=== PATIENT | female | born 1960 | race Caucasian/White ===

== ENCOUNTER → 2017-07-20 | Outpatient (REF) | payer BC ==
[2017-07-20 14:42] LABS: PERCENT SATURATION 22.3 % (13.2-45.0)
== END ==
LOC: M LAB REF 12:44
PROVIDERS: ATTEND Internal Medicine
DX: D50.9 Iron deficiency anemia, unspecified (principal)

== ENCOUNTER → 2018-01-18 | Outpatient (REF) | payer BC ==
[2018-01-19 19:01] LABS: FERRITIN 50 NG/ML (8-252); IRON (FE) 79 UG/DL (50-170); PERCENT SATURATION 22.5 % (13.2-45.0); TOTAL IRON BINDING CAPACITY 351 UG/DL (250-450)
== END ==
LOC: M LAB REF 17:57
DX: D50.9 Iron deficiency anemia, unspecified (principal)
CPT/HCPCS: 83550

== ENCOUNTER → 2018-06-21 | Outpatient (REF) | payer BC ==
[2018-06-21 13:55] LABS: FERRITIN 57 NG/ML (8-252); IRON (FE) 82 UG/DL (50-170); PERCENT SATURATION 23.8 % (13.2-45.0); TOTAL IRON BINDING CAPACITY 344 UG/DL (250-450)
== END ==
LOC: M LAB REF 11:58
DX: D50.9 Iron deficiency anemia, unspecified (principal)
CPT/HCPCS: 83550

== ENCOUNTER → 2019-11-22 | Outpatient (REF) | payer BC ==
[2019-11-22 12:17] LABS: PERCENT SATURATION 18.2 % (13.2-45.0)
== END ==
LOC: M LAB REF 11:45
PROVIDERS: ATTEND Internal Medicine
DX: R14.0 Abdominal distension (gaseous) (principal); D50.8 Other iron deficiency anemias; R19.4 Change in bowel habit

== ENCOUNTER → 2019-12-20 | Outpatient (REF) | payer BC | LOC: M LAB REF 17:00 | PROVIDERS: ATTEND Internal Medicine | DX: R14.0 Abdominal distension (gaseous) (principal); R19.4 Change in bowel habit; E03.9 Hypothyroidism, unspecified ==

== ENCOUNTER → 2020-05-07 | Outpatient (REF) | payer BC ==
[~2020-05-07] MED LIST: ATOR1TAB19 PO; CLAR10CA3 PO; GNP1000T11 PO; METF500T13 PO
== END ==
LOC: M LAB REF 12:26
PROVIDERS: ATTEND Internal Medicine
DX: K62.89 Other specified diseases of anus and rectum (principal); R19.4 Change in bowel habit

== ENCOUNTER → 2020-05-16 | Outpatient (CLI) | payer BC | LOC: M LABSMTC 11:19 | PROVIDERS: ATTEND Anesthesiology | DX: Z01.812 Encounter for preprocedural laboratory examination (principal); Z20.828 Contact with and (suspected) exposure to other viral communicable diseases | CPT/HCPCS: C9803; U0003 ==

== ENCOUNTER 2020-05-21 11:20 | Day surgery (SDC) | payer BC ==
[~2020-05-21] VITALS: Ht 162.6 cm; Wt 99.3 kg
[~2020-05-21 11:20] MED LIST changes: +LIDOCAINE 2% 100MG/5ML SDV (FOR ANES.) As Ordered ONE; +NS 1,000 ML IV ONE; +propofoL 200 MG/20 ML VIAL As Ordered ONE
--- NOTE | 2020-05-21 13:46 | ROOR ---
Patient Name: Elba Bell Procedure Date: 05/21/2020 1:10 PM Date of : 1960 Age: 59 Room: [facility] Gender: Female Note Status: Finalized Procedure: Colonoscopy Indications: Rectal bleeding Providers: Blaine Bauer MD Referring MD: Estefanía Cary DO Requesting Provider: Medicines: Monitored Anesthesia Care Complications: No immediate complications. Procedure: Pre-Anesthesia Assessment: - Prior to the procedure, a History and Physical was performed, and patient medications and allergies were reviewed. The patient is competent. The risks and benefits of the procedure and the sedation options and risks were discussed with the patient. All questions were answered and informed consent was obtained. Patient identification and proposed procedure were verified by the physician, the nurse and the anesthesiologist in the procedure room. Mental Status Examination: alert and oriented. Airway Examination: normal oropharyngeal airway and neck mobility. Prophylactic Antibiotics: The patient does not require prophylactic antibiotics. Prior Anticoagulants: The patient has taken no previous anticoagulant or antiplatelet agents. ASA Grade Assessment: II - A patient with mild systemic disease. After reviewing the risks and benefits, the patient was deemed in satisfactory condition to undergo the procedure. The anesthesia plan was to use monitored anesthesia care (MAC). Immediately prior to administration of medications, the patient was re-assessed for adequacy to receive sedatives. The heart rate, respiratory rate, oxygen saturations, blood pressure, adequacy of pulmonary ventilation, and response to care were monitored throughout the procedure. The physical status of the patient was re-assessed after the procedure. The Colonoscope was introduced through the anus and advanced to the cecum, identified by appendiceal orifice and ileocecal valve. The colonoscopy was somewhat difficult due to a tortuous colon. The patient tolerated the procedure well. The quality of the bowel preparation was good. Findings: The perianal and digital rectal examinations were normal. The colon (entire examined portion) appeared normal. Impression: - The entire examined colon is normal. - No specimens collected. Recommendation: - Discharge patient to home. - Resume previous diet. - Continue present medications. Blaine Bauer MD Blaine Bauer MD 05/21/2020 1:46:12 PM Electronically signed by Blaine Bauer MD Number of Addenda: 0 Note Initiated On: 05/21/2020 1:10 PM Estimated Blood Loss: Estimated blood loss: none.
[2020-05-21 14:00] VITALS: BP 125/65
== END 2020-05-21 14:11 | disposition home or self-care (01) ==
LOC: M OPP 11:20
PROVIDERS: ATTEND Surgery
DX: K62.5 Hemorrhage of anus and rectum (principal); E78.00 Pure hypercholesterolemia, unspecified; E11.9 Type 2 diabetes mellitus without complications; J45.909 Unspecified asthma, uncomplicated; Z91.018 Allergy to other foods; Z79.899 Other long term (current) drug therapy

== ENCOUNTER → 2020-10-08 | Outpatient (REF) | payer BC ==
[~2020-10-08] MED LIST changes: -LIDOCAINE 2% 100MG/5ML SDV (FOR ANES.) As Ordered ONE; -NS 1,000 ML IV ONE; -propofoL 200 MG/20 ML VIAL As Ordered ONE
[2020-10-08 13:05] LABS: PERCENT SATURATION 16.9 % (13.2-45.0)
== END ==
LOC: M LAB REF 12:20
PROVIDERS: ATTEND Internal Medicine
DX: D50.9 Iron deficiency anemia, unspecified (principal)

== ENCOUNTER → 2021-09-10 | Outpatient (CLI) | payer BC | LOC: M RAD 11:12 | PROVIDERS: ATTEND Internal Medicine | DX: M25.552 Pain in left hip (principal) ==

== ENCOUNTER 2022-04-10 20:48 | Emergency (ER) | payer BC ==
[~2022-04-10] VITALS: Ht 162.6 cm; Wt 98.7 kg
[2022-04-10 20:50] VITALS: BP 145/82
== END 2022-04-11 00:32 | disposition home or self-care (01) ==
LOC: M ED 20:48
DX: H53.411 Scotoma involving central area, right eye (principal); F32.A Depression, unspecified; F41.9 Anxiety disorder, unspecified; Z79.899 Other long term (current) drug therapy

== ENCOUNTER → 2022-06-06 | Outpatient (REF) | payer BC ==
[2022-06-06 17:46] LABS: PERCENT SATURATION 18.4 % (13.2-45.0)
== END ==
LOC: M LAB REF 16:21
PROVIDERS: ATTEND Internal Medicine
DX: R53.83 Other fatigue (principal); M25.50 Pain in unspecified joint

== ENCOUNTER → 2023-10-02 | Outpatient (REF) | payer BC ==
[2023-10-02 19:11] LABS: IRON (FE) 58 UG/DL (50-170); TOTAL IRON BINDING CAPACITY 342 UG/DL (250-425)
[2023-10-02 19:14] LABS: CARCINOEMBRYONIC ANTIGEN < 2.0 NG/ML (<2.5)
[2023-10-02 19:15] LABS: FERRITIN 29.7 NG/ML (7.3-270.7)
== END ==
LOC: M LAB REF 17:02
PROVIDERS: ATTEND Internal Medicine
DX: D50.9 Iron deficiency anemia, unspecified (principal); R19.4 Change in bowel habit; R63.4 Abnormal weight loss

== ENCOUNTER → 2023-10-23 | Outpatient (CLI) | payer BC ==
[~2023-10-23] MED LIST changes: +GASTROGRAFIN SOLUTION 30ML As Ordered ONE; +ISOVUE-370 76% 100ML VIAL As Ordered ONE
== END ==
LOC: M RAD 14:06
PROVIDERS: ATTEND Internal Medicine
DX: R10.84 Generalized abdominal pain (principal); R19.4 Change in bowel habit; R63.4 Abnormal weight loss; K86.2 Cyst of pancreas
CPT/HCPCS: 74177; Q9963; Q9967

== ENCOUNTER → 2023-11-30 | Outpatient (CLI) | payer BC ==
[~2023-11-30] MED LIST changes: -GASTROGRAFIN SOLUTION 30ML As Ordered ONE; -ISOVUE-370 76% 100ML VIAL As Ordered ONE; +PROHANCE 279.3MG/ML 15ML VIAL ONE; +PROHANCE 279.3MG/ML 5ML VIAL ONE
== END ==
LOC: M PLAIMG 07:56
PROVIDERS: ATTEND Internal Medicine
DX: K86.2 Cyst of pancreas (principal)
CPT/HCPCS: 74183; A9576

== ENCOUNTER → 2024-01-01 | Outpatient (REF) | payer BC ==
[~2024-01-01] MED LIST changes: -PROHANCE 279.3MG/ML 15ML VIAL ONE; -PROHANCE 279.3MG/ML 5ML VIAL ONE
== END ==
LOC: M LAB REF 16:20
PROVIDERS: ATTEND Internal Medicine
DX: R19.4 Change in bowel habit (principal); R63.4 Abnormal weight loss

== ENCOUNTER → 2024-02-06 | Outpatient (REF) | payer BC | LOC: M LAB REF 09:50 | PROVIDERS: ATTEND Internal Medicine Gastroenterology | DX: R19.7 Diarrhea, unspecified (principal); K86.2 Cyst of pancreas ==

== ENCOUNTER → 2025-07-24 | Outpatient (CLI) | payer BC ==
[~2025-07-24] MED LIST changes: +PROHANCE 279.3MG/ML 15ML VIAL As Ordered ONE; +PROHANCE 279.3MG/ML 5ML VIAL As Ordered ONE
== END ==
LOC: M RAD 14:52
DX: K86.2 Cyst of pancreas (principal); R19.7 Diarrhea, unspecified; K76.89 Other specified diseases of liver; K76.0 Fatty (change of) liver, not elsewhere classified
CPT/HCPCS: 74183; A9579

== ENCOUNTER → 2025-08-11 | Outpatient (CLI) | payer BC ==
[~2025-08-11] MED LIST changes: -PROHANCE 279.3MG/ML 15ML VIAL As Ordered ONE; -PROHANCE 279.3MG/ML 5ML VIAL As Ordered ONE
== END ==
LOC: M PLARAD 08:27
PROVIDERS: ATTEND Internal Medicine Gastroenterology
DX: K86.2 Cyst of pancreas (principal)